=== PATIENT | male | born 1960 | race Caucasian/White ===

== ENCOUNTER → 2018-12-12 13:30 | Outpatient (CLI) | payer BC, SELFPAY ==
[2018-12-13 09:01] LABS: BUN 14 mg/dL (7-18); Glucose 109 mg/dL (74-106)
[2018-12-13 09:02] LABS: Anion Gap 10 (5-15); BUN/Creat Ratio 12.1 RATIO (10-20); CRP 8.52 mg/L (0.0-3.0); Calcium,Total 9.1 mg/dL (8.5-10.1); Chloride 98 mmol/L (98-107); Creatinine, Serum 1.16 mg/dL (0.70-1.30); EST Glomerular Filtration Rate 69 mL/min (>60); Est Glom Filt Rate - Afr Amer 84 mL/min (>60); Potassium 4.2 mmol/L (3.5-5.1); Sodium Level 138 mmol/L (136-145)
[2018-12-13 09:13] LABS: Absolute Lymphocyte Count 2.03 X10^3/uL (0.83-4.51); Basophil% 0.6 % (0-1); Eosinophils% 2.8 % (0-5); Hematocrit 42.3 % (40-54); Hemoglobin 13.1 g/dL (13.0-16.5); Lymphocyte # 2.03 X10^3/ul (4.0); Lymphocyte % 11.5 % (19-41); Mean Corpuscular Hgb 28.2 pg (27.0-32.0); Mean Platelet Vol. 9.7 fl (6.2-12.0); Monocyte# 0.83 X10^3/uL; Monocyte% 4.7 % (0-10); NRBC Flagged by Analyzer 0 % (0-5); Neutrophil # 14.04 X10^3/uL (2.7-7.7); Neutrophil % 79.6 % (47-70); Platelet Count 370 K/mm3 (150-450); RBC Distribution Width CV 14.6 % (11.6-14.6); RBC Distribution Width SD 48.8 fl (35.1-43.9); Red Blood Count 4.65 M/mm3 (4.6-6.2); White Blood Count 17.6 K/mm3 (4.4-11.0)
== END ==
DX: K81.0 Acute cholecystitis (principal)
CPT/HCPCS: 80048; 85025; 86140

== ENCOUNTER → 2019-01-02 13:12 | Outpatient (CLI) | payer BC, SELFPAY ==
[2019-01-02 13:36] LABS: Absolute Lymphocyte Count 1.23 X10^3/uL (0.83-4.51); Absolute Neutrophil Count 7.1 X10^3/uL (2.0-7.7); Basophil# 0.04 X10^3/uL; Basophil% 0.4 % (0-1); Eosinophil# 0.51 X10^3/uL; Eosinophils% 5.4 % (0-5); Hematocrit 40.5 % (40-54); Hemoglobin 12.7 g/dL (13.0-16.5); Lymphocyte # 1.23 X10^3/ul (4.0); Lymphocyte % 13.1 % (19-41); Mean Corp Hgb Conc 31.4 g/dL (32-36); Mean Corpuscular Hgb 28.7 pg (27.0-32.0); Mean Corpuscular Volume 91.6 fL (80-94); Mean Platelet Vol. 11.4 fl (6.2-12.0); Monocyte# 0.45 X10^3/uL; Monocyte% 4.8 % (0-10); NRBC Flagged by Analyzer 0 % (0-5); Neutrophil # 7.13 X10^3/uL (2.7-7.7); Neutrophil % 75.9 % (47-70); Platelet Count 187 K/mm3 (150-450); RBC Distribution Width CV 14.8 % (11.6-14.6); RBC Distribution Width SD 49.5 fl (35.1-43.9); Red Blood Count 4.42 M/mm3 (4.6-6.2); White Blood Count 9.4 K/mm3 (4.4-11.0)
[2019-01-02 13:44] LABS: Anion Gap 6 (5-15); BUN 20 mg/dL (7-18); BUN/Creat Ratio 15.5 RATIO (10-20); Calcium,Total 8.6 mg/dL (8.5-10.1); Chloride 99 mmol/L (98-107); Creatinine, Serum 1.29 mg/dL (0.70-1.30); EST Glomerular Filtration Rate 61 mL/min (>60); Est Glom Filt Rate - Afr Amer 74 mL/min (>60); Glucose 425 mg/dL (74-106); Potassium 4.5 mmol/L (3.5-5.1); Sodium Level 136 mmol/L (136-145)
== END ==
LOC: LAB 13:27 → LABSPEC 13:28
DX: K81.0 Acute cholecystitis (principal); Z79.2 Long term (current) use of antibiotics
CPT/HCPCS: 80048; 85025